=== PATIENT | female | born 1985 | race African-American/Black ===

== ENCOUNTER 2016-07-28 22:48 | Emergency (ER) | payer MEDICAID ==
[2016-07-28 23:46] LABS: HCG URINE NEGATIVE (NEGATIVE)
== END 2016-07-29 01:15 | disposition home or self-care (01) ==
LOC: D.ER 22:48
PROVIDERS: Nurse Practitioner Acute Care
DX: S00.83XA Contusion of other part of head, initial encounter (principal); Y04.2XXA Assault by strike against or bumped into by another person, initial encounter; Y93.89 Activity, other specified; Y92.89 Other specified places as the place of occurrence of the external cause; F17.200 Nicotine dependence, unspecified, uncomplicated

== ENCOUNTER 2016-11-14 13:46 | Emergency (ER) | payer MEDICAID ==
[2016-11-14 15:36] LABS: APPEARANCE CLEAR (CLEAR); BILIRUBIN NEGATIVE (NEGATIVE); COLOR YELLOW (YELLOW); GLUCOSE NEGATIVE (NEGATIVE); KETONE NEGATIVE (NEGATIVE); LEUKOCYTE ESTERASE NEGATIVE (NEGATIVE); NITRITE NEGATIVE (NEGATIVE); PROTEIN NEGATIVE (NEGATIVE); SPECIFIC GRAVITY 1.015 (1.005-1.020); UROBILINOGEN NORMAL (NORMAL)
== END 2016-11-14 17:36 | disposition home or self-care (01) ==
LOC: D.ER 13:46
PROVIDERS: Nurse Practitioner Family
DX: J02.9 Acute pharyngitis, unspecified (principal); J06.9 Acute upper respiratory infection, unspecified; R51 Headache; M79.1 Myalgia; M54.9 Dorsalgia, unspecified; F17.200 Nicotine dependence, unspecified, uncomplicated

== ENCOUNTER 2017-06-28 09:58 | Emergency (ER) | payer MEDICAID | END 2017-06-28 13:20 | disposition home or self-care (01) | LOC: D.ER 09:58 | DX: J20.9 Acute bronchitis, unspecified (principal) ==